=== PATIENT | female | born 1950 | race Caucasian/White ===

== ENCOUNTER 2017-02-01 22:16 | Emergency (ER) | payer MEDICARE, OTHER ==
[~2017-02-01] VITALS: Ht 160 cm; Wt 53.2 kg
[2017-02-01 22:22] VITALS: Ht 160 cm; Wt 53.2 kg
--- NOTE | 2017-02-01 22:39 | ERA ---
ER Documentation Chief Complaint Date/Time DATE: 02/01/17 TIME: 22:39 Chief Complaint Lower back pain HPI The patient is a 66-year-old female, presenting to the ER because of lower back pain radiating down to her left lower extremity about 3 hours prior to arrival. The pain is 8/10, worse with movement. She denies fecal or urinary incontinence. He denies fever, chills, neck pain, chest pain, dyspnea, abdominal pain, vomiting, dysuria, diarrhea, constipation. She does not smoke nor drink Past medical history: Hypertension Past surgical history: Right ovarian cyst ROS All systems reviewed and are negative except as per history of present illness. Medications Home Meds Active Scripts Hydrocodone/Acetaminophen ([place] 10-325 Tablet) 1 Each Tablet, 1 TAB PO Q6H Y for PAIN, #15 TAB Prov:GLORIA KNIGHT MD 02/01/17 Ibuprofen* (Motrin*) 600 Mg Tab, 600 MG PO Q6H Y for PAIN AND OR ELEVATED TEMP, #30 TAB Prov:GLORIA KNIGHT MD 02/01/17 Allergies Allergies: Coded Allergies: Penicillins (Verified Allergy, Unknown, 02/01/17) PMhx/Soc History of Surgery: Yes (BENIGN OVARIAN CYST REMOVAL) Hx Cardiac Disorders: Yes (HTN) Hx Alcohol Use: No Hx Substance Use: No Hx Tobacco Use: No Smoking Status: Never smoker Physical Exam Vitals Vital Signs Date Time Temp Pulse Resp B/P Pulse Ox O2 Delivery O2 Flow Rate FiO2 02/02/17 01:06 61 16 158/69 99 Room Air 02/01/17 23:41 67 16 155/85 97 02/01/17 22:33 86 22 166/85 100 Room Air 02/01/17 22:22 99.2 87 18 199/86 100 Physical Exam Const: No acute distress. Head: Atraumatic. Eyes: Normal Conjunctiva. ENT: Normal External Ears, Nose and Mouth. Neck: Full range of motion. No meningismus. Resp: Clear to auscultation bilaterally. Cardio: Regular rate and rhythm, no murmurs. Abd: Soft, non distended, normal bowel sounds, non tender. Skin: No petechiae or rashes. Back: No midline or flank tenderness. No crepitus, equivocal left lower extremity straight leg raising test Ext: No cyanosis, or edema. Neur: Awake and alert. No focal deficit Psych: Normal Mood and Affect. Results 24 hrs Current Medications Medications (Trade) Dose Ordered Sig/Teto Route PRN Reason Start Time Stop Time Status Last Admin Dose Admin Morphine Sulfate (morphine) 4 mg ONCE ONCE IM 02/01/17 23:00 02/01/17 23:01 DC 02/01/17 23:00 Ondansetron HCl (Zofran Odt) 4 mg ONCE STAT ODT 02/01/17 22:51 02/01/17 22:53 DC 02/01/17 22:59 Hydromorphone HCl (Dilaudid) 1 mg ONCE STAT IM 02/02/17 00:36 02/02/17 00:37 DC 02/02/17 01:04 Procedures/MDM MEDICAL MAKING DECISION: The patient is a 66-year-old female, presenting with acute on chronic low back pain with sciatica. She was treated with morphine 4 mg IM, Dilaudid 1 mg IM and Zofran ODT for nausea with good response. The differential diagnoses considered include but are not limited to caudal equina syndrome, spinal abscess, DJD, diskitis, lumbar radiculopathy. Departure Diagnosis: Primary Impression: Sciatica Additional Impression: Lower back pain Condition: Good Comments She was discharged with [place] Motrin and advised to follow her doctor in the morning for back MRI for further evaluation and return if any concern GLORIA KNIGHT MD Feb 01, 2017 22:39
[2017-02-01] MEDS ORDERED: ONDANSETRON (ODT) 4 MG TAB ODT STA (22:51)
[2017-02-01] MEDS ORDERED: HYDR-902 PO (22:58)
[2017-02-01] MEDS ORDERED: IBUP-1542 PO (22:58)
[2017-02-01] MEDS ORDERED: morphine 10 MG INJ IM ONE (23:00)
[2017-02-02] MEDS ORDERED: HYDROmorphONE 1 MG/ML SYG IM STA (00:36)
[2017-02-02 02:34] VITALS: BP 157/81; PULSE 75; RESP 18
== END 2017-02-02 02:35 | disposition home or self-care (01) ==
LOC: E/R 22:16
DX: M54.42 Lumbago with sciatica, left side (principal); I10 Essential (primary) hypertension
CPT/HCPCS: J1170; J2270; 96372